=== PATIENT | female | born 1990 | race Caucasian/White ===

== ENCOUNTER 2021-06-06 14:23 | Emergency (ER) | payer MEDICAID, SELFPAY ==
[2021-06-06 14:24] VITALS: BP 139/85; PULSE 71; RESP 14; TEMP 37.1; O2SAT 98; BMI 42.7
[2021-06-06 14:39] VITALS: BP 125/82; PULSE 85; RESP 15; O2SAT 97
--- NOTE | 2021-06-06 15:01 | EDS_ITS ---
HPI History of Present Illness Chief Complaint: Lower Extremity Injury Informant: patient Narrative Narrative: Patient presents to the emergency room with left calf pain. Patient states she is had prior DVT in 2013 which required surgery. She was on Lovenox and then Coumadin. She recently traveled from the [facility] to visit. She notes a pain in the left calf and I am not for the past several days. She notes no significant change in the chronic swelling of the left leg. She is scheduled to go back home tomorrow around noon. PFSH PFS Medical History Anxiety Chronic pain Depression DVT (deep venous thrombosis) Pulmonary emboli Substance abuse Home Medications bupropion HCl [Wellbutrin] 300 mg PO DAILY 06/06/21 [History Last Taken Unknown] cholecalciferol (vitamin D3) [Vitamin D3] 50 mcg PO DAILY 06/06/21 [History Last Taken Unknown] omeprazole 20 mg PO DAILY 06/06/21 [History Last Taken Unknown] Allergy/AdvReac Type Severity Reaction Status Date / Time No Known Allergies Allergy Verified 06/06/21 14:27 Surgical History History of cholecystectomy Social History (Updated 06/06/21 @ 15:[address] Torres Carey DO) Smoking Status: Never smoker substance use type: does not use ROS ROS ED Constitutional Constitutional ED: Denies chills or weight loss Eyes Eyes: Denies change in vision or diplopia ENT ENT ED: Denies ear pain, rhinorrhea or sore throat Cardiovascular Cardiovascular: Denies chest pain, orthopnea, palpitations or racing heartbeat Respiratory/Chest Respiratory/Chest: Denies cough, dyspnea or orthopnea Gastrointestinal Gastrointestinal: Denies abdominal pain, diarrhea, nausea or vomiting Genitourinary Genitourinary ED: Denies dysuria, hematuria or urinary frequency Musculoskeletal Musculoskeletal: Reports other Details: Left calf pain ; Denies arthralgias or myalgias Integumentary Denies abscess or rash Neurologic Neurologic: Denies headache(s) or weakness Psychiatric Psychiatric: Denies anxiety, depression, suicidal ideation or suicidal thoughts Endocrine Endocrinology: Denies polydipsia, polyphagia or polyuria Allergic/Immunologic Allergic/Immunologic ED: Denies mouth swelling, tongue swelling or urticaria EXAM Physical Exam Const Vital Signs: 06/06/21 14:24 06/06/21 14:39 Temperature 98.7 F Temperature Source Temporal Pulse Rate 71 85 Respiratory Rate 14 15 Blood Pressure 139/85 H 125/82 H Blood Pressure Mean 103 96 Pulse Ox 98 97 Oxygen Delivery Method Room Air Room Air Positive well nourished and well developed General Appearance ED: well developed HEENT Reports normocephalic, head/scalp atraumatic and moist mucous membranes Eyes PERRL and EOMs intact bilaterally Neck no lymphadenopathy, supple and no JVD Resp normal respiratory effort and clear to auscultation bilaterally Cardio regular rate, regular rhythm and no murmurs GI normal to inspection, nondistended, normoactive bowel sounds and non-tender Palpation: soft Back/Spine no CVA tenderness and normal ROM Extremity Extremity Narrative: Left leg swelling which the patient notes is chronic no palpable cords. General Extremety ED: Negative for edema General Extremity: Negative for edema Neuro oriented x3 and CN's II-XII intact bilaterally Sensorium / Orientation: alert Motor Exam: strength 5/5 throughout Psych mental status grossly normal Mood & Affect: Negative for depressed or tearful Skin no rashes or lesions noted and no wounds MDM MDM MDM Narrative Medical decision making narrative: Patient to be given a shot of Lovenox. She will be brought back tomorrow morning for duplex ultrasound as there is no ultrasound capabilities here. Discharge Plan Triage Chief Complaint: Lower Extremity Injury ED Provider: Torres Carey Dx/Rx/DC Orders Clinical Impression: Pain of left calf Instructions: Understanding Deep Vein Thrombosis Prescriptions: No Action bupropion HCl [Wellbutrin] 100 mg Tablet 300 mg PO DAILY RF: 0 omeprazole 20 mg Tablet,Delayed Release (Dr/Ec) 20 mg PO DAILY RF: 0 cholecalciferol (vitamin D3) [Vitamin D3] 50 mcg (2,000 unit) Capsule 50 mcg PO DAILY RF: 0 Other Ambulatory Orders: Venous Duplex US, Unilateral (Routine) Facility: [facility] - Location: [facility] Ordered By: Dr. Torres Carey Disposition Disposition: Home, Self Care
[2021-06-06] MEDS: Enoxaparin 120 MG/0.8 ML Syringe SC (15:37)
[2021-06-06 15:40] VITALS: BP 126/74; PULSE 63; RESP 15; O2SAT 100
== END 2021-06-06 15:41 | disposition home or self-care (01) ==
LOC: ED 15:17
PROVIDERS: Emergency Provider Emergency Medicine
DX: M79.662 Pain in left lower leg (principal); M79.89 Other specified soft tissue disorders; F32.9 Major depressive disorder, single episode, unspecified; F41.9 Anxiety disorder, unspecified; G89.29 Other chronic pain; Z86.718 Personal history of other venous thrombosis and embolism; Z86.711 Personal history of pulmonary embolism; Z79.01 Long term (current) use of anticoagulants; Z79.899 Other long term (current) drug therapy
CPT/HCPCS: 96372; 99282

== ENCOUNTER → 2021-06-07 10:08 | Outpatient (CLI) | payer MEDICAID, SELFPAY ==
[2021-06-06 14:24] VITALS: BMI 42.7
--- NOTE | 2021-06-07 10:16 | VDLE_ITS ---
Reason For Study: pain Procedure LEFT This is a venous duplex using B-mode, color GSV is normal. flow and spectral Doppler. CFV is compressible, spontaneous, phasic, Exam performed in department. competent, and demonstrates normal The exam was abbreviated due to the COVID 19 augmentation. protocol. FV is compressible, spontaneous, phasic, The exam was diagnostic. competent and demonstrates normal Pt taked to the ED for medical advice. augmentation. POP V is compressible, spontaneous, phasic, competent and demonstrates normal augmentation. T/P Trunk is compressible. PTV is compressible. LT PerV is compressible. Varicose veins in the calf are dilated and noncompressible. VL/Venous Duplex US, Unilateral Interpretation Summary Deep veins of the left lower extremity are patent and compressible segmentally. There is no evidence of left lower extremity deep vein thrombosis. Valvular competence appears intac t within the proximal deep venous system on the left . The left great saphenous vein appears patent a nd compressible segmentally. Acute superficial thrombophlebitis is noted involving superficial varicosities in the left calf. Ordering Physician: Torres Carey Referring Physician: Torres Carey Performed By: Curtis Orozco RVT
== END ==
LOC: VL 10:11
PROVIDERS: Referring Provider Emergency Medicine; Visit Provider Emergency Medicine
DX: M79.605 Pain in left leg (principal)
CPT/HCPCS: 93971